=== PATIENT | female | born 1975 ===

== ENCOUNTER 2023-03-21 08:17 | Day surgery (SDC) | payer BC ==
[2023-03-21] MEDS ORDERED: Propofol 200 MG/20 ML SDV IV ONE (08:18)
[2023-03-21] MEDS ORDERED: Lidocaine 2% 5 ML SDV IV ONE (08:18)
[2023-03-21] MEDS ORDERED: Lactated Ringers 1,000 ML IV SCH (08:30)
[2023-03-21] MEDS ORDERED: Sodium Chloride 0.9% 10 ML Syringe FLUSH PRN (08:30)
[2023-03-21 08:54] VITALS: BP 109/77; PULSE 82
[2023-03-21] MEDS ORDERED: Simethicone Drops 40 MG/0.6 ML 30 ML Bottle ONE (10:47)
== END 2023-03-21 12:52 | disposition home or self-care (01) ==
LOC: FB.SDS 08:17
PROVIDERS: ATTEND Surgery
DX: K63.5 Polyp of colon (principal); D12.6 Benign neoplasm of colon, unspecified; F41.9 Anxiety disorder, unspecified; E66.9 Obesity, unspecified; F17.210 Nicotine dependence, cigarettes, uncomplicated; Z68.32 Body mass index [BMI] 32.0-32.9, adult; Z79.899 Other long term (current) drug therapy; Z90.49 Acquired absence of other specified parts of digestive tract
CPT/HCPCS: 00811; 88305; A9270-GY; J2704; J7120